=== PATIENT | male | born 1995 | race African-American/Black ===

== ENCOUNTER 2016-12-21 20:39 | Emergency (ER) | payer SELFPAY ==
[~2016-12-21] VITALS: Ht 190.5 cm; Wt 77.1 kg
[2016-12-21 22:30] VITALS: BP 118/86
[2016-12-21] MEDS ORDERED: IPRATRPIUM/ALBUTEROL 0.5/2.5MG 3 ML NEBU. NEB ONE (23:15)
--- NOTE | 2016-12-21 23:40 | PHYS DOC ---
Past Medical History Past Medical History: No Pertinent History Past Surgical History: No Surgical History Alcohol Use: None Drug Use: Marijuana Adult General Chief Complaint Chief Complaint: SHORTNESS OF BREATH HPI HPI Patient is a 21 year old male who presents with shortness of breath. The patient states he has 1 week history of dyspnea, feels short of breath when he takes a deep breath. He denies dyspnea with exertion, denies fevers/chills, cough, chest pain, lower extremity pain/swelling. He smokes marijuana. He is previously healthy. Seen at outside hospital earlier this week & treated for presumed bronchospasm & GERD. He has not filled inhaler/med prescription given at time of hospital discharge but doesn't feel better. He doesn't understand the diagnosis he was given at previous visit. Review of Systems Review of Systems Constitutional: Denies fever or chills HENT: Denies nasal congestion or sore throat Respiratory: Denies cough, reportsshortness of breath Cardiovascular: Denies chest pain or edema GI: Denies abdominal pain, nausea, vomiting Musculoskeletal: Denies back pain or joint pain Integument: Denies rash or skin lesions Neurologic: Denies headache, focal weakness or sensory changes Current Medications Current Medications Current Medications Medications (Trade) Dose Ordered Sig/Jami Start Time Stop Time Status Last Admin Dose Admin Albuterol/ Ipratropium (Duoneb) 3 ml 1X ONCE 12/21/16 23:15 12/21/16 23:16 DC 12/21/16 23:40 3 ML Allergies Allergies Allergies Coded Allergies Type Severity Reaction Last Updated Verified No Known Drug Allergies 12/21/14 No Physical Exam Physical Exam Constitutional: Well developed, well nourished, no acute distress, non-toxic appearance. HENT: Normocephalic, atraumatic, bilateral external ears normal, oropharynx moist, no tonsillar enlargement or exudate, nose normal. Eyes: conjunctiva normal, no discharge. Neck: supple, no stridor. Cardiovascular: RRR, no murmurs, no edema. Lungs & Thorax: LCTAB, breath sounds present in all lung santos, no wheezing, no respiratory distress. Abdomen: soft, nontender, nondistended. Skin: Warm, dry, no erythema, no rash. Back: No tenderness. Extremities: No tenderness, no edema. no calf tenderness or swelling. Neurologic: Alert and oriented X 3, no focal deficits noted. Psychologic: Affect normal, judgement normal, mood normal. Current Patient Data Vital Signs Vital Signs Date Time Temp Pulse Resp B/P (MAP) Pulse Ox O2 Delivery O2 Flow Rate FiO2 12/21/16 23:40 100 Room Air 12/21/16 22:30 99.1 50 20 99.1 EKG EKG [] Radiology/Procedures Radiology/Procedures Chest x-ray: 2 views, interpreted by me: No cardiomegaly, no infiltrate, no pneumothorax, no acute process. [] Course & Med Decision Making Course & Med Decision Making Pertinent Labs and Imaging studies reviewed. (See chart for details) The patient presents with shortness of breath. He has stable vitals including oxygen saturation 100% on room air, with good waveform. Normal lung exam. Gave duoneb, obtained CXR. No acute abnormality identified. Recommend filling prescriptions for inhaler & antacid, follow up with primary care & consider seeing Dr. Cohen in pulmonary clinic. Stop abusing marijuana. Come back for severe shortness of breath or chest pain, or any otherwise worsening condition. Discharged home in stable condition. [] Dragon Disclaimer Dragon Disclaimer This electronic medical record was generated, in whole or in part, using a voice recognition dictation system. Departure Departure Impression: Primary Impression: Dyspnea Additional Impression: Marijuana abuse Disposition: 01 HOME, SELF-CARE Condition: STABLE Referrals: NO PCP (PCP) SHIVA COHEN MD Patient Instructions: Shortness of Breath, [id number] Additional Instructions: You were seen in the emergency department today for shortness of breath. The tests here did not show serious cause of symptoms. Please continue to use inhaler as needed. Follow-up with a primary care doctor this week and make an appointment with Dr. Cohen in the pulmonary clinic. You may need further testing to be completed as an outpatient. Come back for severe shortness of breath or chest pain, or any otherwise worsening condition. Problem Qualifiers YANETH GONZALES MD Dec 21, 2016 23:40
--- NOTE | 2016-12-22 07:26 | RAD ---
Chest, 2 views, 12/21/2016: History: Shortness of breath The heart size is normal. The lungs are clear. There is no evidence of pleural fluid. IMPRESSION: No significant abnormality is detected.
== END 2016-12-22 00:24 | disposition home or self-care (01) ==
LOC: ER 20:39
DX: R06.00 Dyspnea, unspecified (principal); F12.10 Cannabis abuse, uncomplicated
CPT/HCPCS: 71020; 94640; 99284; J7620

== ENCOUNTER 2016-12-27 22:19 | Emergency (ER) | payer SELFPAY ==
[~2016-12-27] VITALS: Ht 190.5 cm; Wt 76.7 kg
[2016-12-27 22:30] VITALS: BP 122/75
[2016-12-27] MEDS ORDERED: IBUPROFEN 400 MG TABLET. PO ONE (23:00)
--- NOTE | 2016-12-27 23:19 | PHYS DOC ---
Past Medical History Past Medical History: Asthma, GERD Past Surgical History: No Surgical History Alcohol Use: None Drug Use: Marijuana Adult General Chief Complaint Chief Complaint: PLEURISY HPI HPI 21-year-old male presenting with pain in his chest that is sharp intermittent nonradiating and present for about 3 hours. He also has mild shortness of breath. The pain comes and goes. He denies syncope. Review of systems is negative for fevers chills nausea vomiting. He denies syncope or headache or abdominal pain. All other review of systems is negative unless otherwise noted in history of present illness. ED course: 21-year-old gentleman presenting to the emergency department with chest pain. EKG shows sinus rhythm with a regular rate. Possible LVH present. ST segments congruent. Not suggestive of ACS.Chest x-ray reviewed by myself shows no obvious infiltrate or pneumothorax present. No obvious acute cardiopulmonary process present. The patient was then discharged home in stable condition to follow up with their primary care physician over the next 2-3 days. They were to return if their symptoms worsened or if they were concerned for any reason. [id number] discharge instructions and return precautions were given. Patient's questions were answered to their satisfaction. Patient is comfortable plan. Review of Systems Review of Systems SEE ABOVE. Current Medications Current Medications Current Medications Medications (Trade) Dose Ordered Sig/Jami Start Time Stop Time Status Last Admin Dose Admin Ibuprofen (Motrin) 400 mg 1X ONCE 12/27/16 23:00 12/27/16 23:01 DC Allergies Allergies Allergies Coded Allergies Type Severity Reaction Last Updated Verified No Known Drug Allergies 12/21/14 No Physical Exam Physical Exam SEE ABOVE Constitutional: Well developed, well nourished, no acute distress, non-toxic appearance. [] HENT: Normocephalic, atraumatic, bilateral external ears normal, oropharynx moist, no oral exudates, nose normal. [] Eyes: PERRLA, EOMI, conjunctiva normal, no discharge. [] Neck: Normal range of motion, no tenderness, supple, no stridor. [] Cardiovascular:Heart rate regular rhythm, no murmur [] Lungs & Thorax: Bilateral breath sounds clear to auscultation [] Abdomen: Bowel sounds normal, soft, no tenderness, no masses, no pulsatile masses. [] Skin: Warm, dry, no erythema, no rash. [] Back: No tenderness, no CVA tenderness. [] Extremities: No tenderness, no cyanosis, no clubbing, ROM intact, no edema. [] Neurologic: Alert and oriented X 3, normal motor function, normal sensory function, no focal deficits noted. [] Psychologic: Affect normal, judgement normal, mood normal. [] Current Patient Data Vital Signs Vital Signs Date Time Temp Pulse Resp B/P (MAP) Pulse Ox O2 Delivery O2 Flow Rate FiO2 12/27/16 22:30 98.8 69 16 122/75 (91) 99 Room Air 98.8 EKG EKG [] Radiology/Procedures Radiology/Procedures [] Course & Med Decision Making Course & Med Decision Making Pertinent Labs and Imaging studies reviewed. (See chart for details) [] Dragon Disclaimer Dragon Disclaimer This electronic medical record was generated, in whole or in part, using a voice recognition dictation system. Departure Departure Impression: Primary Impression: Chest pain Disposition: HOME, SELF-CARE Condition: STABLE Referrals: NO PCP (PCP) ASHLEY FLOWERS MD Patient Instructions: Chest Pain (Nonspecific), Pleurisy RUSTY DALEY MD Dec 27, 2016 23:18
--- NOTE | 2016-12-28 08:13 | RAD ---
2 view CXR: Clinical indications: Chest pain and shortness of breath for 2 days.. Findings: No acute lung infiltrate or pleural effusion or pulmonary edema or lung mass or pneumothorax is seen. The heart size, pulmonary vasculature, mediastinum and both lisset are unremarkable. The osseous structures appear intact. Impression: No acute radiographic abnormality is seen.
--- NOTE | 2016-12-28 09:22 | EKG ---
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
== END 2016-12-27 23:53 | disposition home or self-care (01) ==
LOC: ER 22:19
DX: R07.9 Chest pain, unspecified (principal); J45.909 Unspecified asthma, uncomplicated; K21.9 Gastro-esophageal reflux disease without esophagitis; F12.10 Cannabis abuse, uncomplicated
CPT/HCPCS: 71020; 93005; 99284

== ENCOUNTER 2017-01-12 05:32 | Emergency (ER) | payer SELFPAY ==
[~2017-01-12] VITALS: Ht 190.5 cm; Wt 76.7 kg
[2017-01-12 05:42] VITALS: BP 125/86
[2017-01-12] MEDS ORDERED: FAMOTIDINE 20 MG TABLET. PO ONE (06:15)
[2017-01-12] MEDS ORDERED: LIDO:MAALOX:DONNATAL 1:1:1 15 ML SINGLE DOSE SWSW ONE (06:15)
--- NOTE | 2017-01-12 06:41 | RAD ---
Examination: Ultrasound abdomen limited HISTORY: History of epigastric pain COMPARISON: None available FINDINGS: The visualized pancreas, aorta, IVC appears patent. The echogenicity of the liver grossly appears unremarkable. The gallbladder is minimally distended. The gallbladder wall thickness measures 1.6 mm. The right kidney measures 10.2 cm in length. The common bile duct measures 4.7 mm in diameter. IMPRESSION: Unremarkable visualized exam. Electronically signed by: Sg Lima MD (01/12/2017 6:37 AM) [facility]
[2017-01-12] MEDS ORDERED: FAMO40TA57 PO (06:44)
--- NOTE | 2017-01-12 06:48 | PHYS DOC ---
Past Medical History Past Medical History: Asthma, GERD Past Surgical History: No Surgical History Alcohol Use: None Drug Use: Marijuana Adult General Chief Complaint Chief Complaint: ABDOMINAL PAIN HPI HPI 21-year-old male presenting to the emergency department today with a burning sensation in his epigastrium that is nonradiating intermittent. It is worse when he lays back and improved with sitting up. I saw him 2 weeks ago for similar thing he reports mild improvement with the antacid however the pain has come back. He's also tried natural remedies including honey. Review of systems is negative for fevers chills nausea vomiting diarrhea constipation blood in stool. All other review of systems is negative unless otherwise noted in history of present illness. ED course: 21-year-old male presenting to the emergency department with a burning epigastric abdominal pain. Vital signs unremarkable. Pertinent physical exam:Soft nontender abdomen without rebound tenderness or guarding present. Negative McBurneys point. Negative Flowers sign. No ecchymosis present.. Lungs are clear to auscultation bilaterally. Otherwise unremarkable exam. The patient was given Pepcid along with a GI cocktail and subsequent discharged home to follow-up with his PCP. The patient was then discharged home in stable condition to follow up with their primary care physician over the next 2-3 days. They were to return if their symptoms worsened or if they were concerned for any reason. [id number] discharge instructions and return precautions were given. Patient's questions were answered to their satisfaction. Patient is comfortable plan. Review of Systems Review of Systems SEE ABOVE. Current Medications Current Medications Current Medications Medications (Trade) Dose Ordered Sig/Jami Start Time Stop Time Status Last Admin Dose Admin Famotidine (Pepcid) 20 mg 1X ONCE 01/12/17 06:15 01/12/17 06:16 DC 01/12/17 06:30 20 MG Multi-Ingredient Mouthwash/Gargle (Gi Cocktail Single Dose) 15 ml 1X ONCE 01/12/17 06:15 01/12/17 06:16 DC 01/12/17 06:30 15 ML Allergies Allergies Allergies Coded Allergies Type Severity Reaction Last Updated Verified No Known Drug Allergies 12/21/14 No Physical Exam Physical Exam SEE ABOVE Constitutional: Well developed, well nourished, no acute distress, non-toxic appearance. [] HENT: Normocephalic, atraumatic, bilateral external ears normal, oropharynx moist, no oral exudates, nose normal. [] Eyes: PERRLA, EOMI, conjunctiva normal, no discharge. [] Neck: Normal range of motion, no tenderness, supple, no stridor. [] Cardiovascular:Heart rate regular rhythm, no murmur [] Lungs & Thorax: Bilateral breath sounds clear to auscultation [] Abdomen: Bowel sounds normal, soft, no tenderness, no masses, no pulsatile masses. [] Skin: Warm, dry, no erythema, no rash. [] Back: No tenderness, no CVA tenderness. [] Extremities: No tenderness, no cyanosis, no clubbing, ROM intact, no edema. [] Neurologic: Alert and oriented X 3, normal motor function, normal sensory function, no focal deficits noted. [] Psychologic: Affect normal, judgement normal, mood normal. [] Current Patient Data Vital Signs Vital Signs Date Time Temp Pulse Resp B/P (MAP) Pulse Ox O2 Delivery O2 Flow Rate FiO2 01/12/17 05:42 98.2 53 16 125/86 (99) 100 Room Air 98.2 EKG EKG [] Radiology/Procedures Radiology/Procedures [] Course & Med Decision Making Course & Med Decision Making Pertinent Labs and Imaging studies reviewed. (See chart for details) [] Dragon Disclaimer Dragon Disclaimer This electronic medical record was generated, in whole or in part, using a voice recognition dictation system. Departure Departure Impression: Primary Impression: Epigastric abdominal pain Disposition: HOME, SELF-CARE Condition: STABLE Referrals: NO PCP (PCP) Patient Instructions: Abdominal Pain Additional Instructions: Thank you for allowing us to participate in your care today. Followup with your primary care physician in 3 days if your symptoms do not improve. Call your Primary Doctor tomorrow and inform them of your visit today. If you do not have a primary care provider you can ask for a list of our primary care providers. Return to the emergency department you have any new or concerning findings. This should be evaluated by the primary care physician and any necessary consulting services for continued management within a few days after discharge. Return to emergency room if you have any new or concerning symptoms including but not limited to fever, chills, nausea, vomiting, intractable pain, any new rashes, chest pain, shortness of air, uncontrolled bleeding, difficulty breathing, and/or vision loss. Scripts Famotidine (PEPCID) 40 Mg Tablet 40 MG PO HS, #14 TAB 0 Refills Prov: RUSTY DALEY MD 01/12/17 RUSTY DALEY MD Jan 12, 2017 06:48
--- NOTE | 2017-01-12 07:10 | RAD ---
Chest, 2 views, 01/12/2017: History: Chest pain The heart size is normal. The lungs are clear. There is no evidence of pleural fluid. IMPRESSION: No acute cardiopulmonary abnormality is detected.
--- NOTE | 2017-01-12 07:48 | EKG ---
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
== END 2017-01-12 07:23 | disposition home or self-care (01) ==
LOC: ER 05:32
DX: R10.13 Epigastric pain (principal); J45.909 Unspecified asthma, uncomplicated; K21.9 Gastro-esophageal reflux disease without esophagitis; F12.10 Cannabis abuse, uncomplicated
CPT/HCPCS: 71020; 76705; 93005; 99284-25

== ENCOUNTER 2017-04-10 14:10 | Emergency (ER) | payer SELFPAY ==
[~2017-04-10] VITALS: Ht 190.5 cm; Wt 77.1 kg
[~2017-04-10 14:10] MED LIST: FAMO40TA57 PO
[2017-04-10 14:12] VITALS: BP 130/67
[2017-04-10] MEDS ORDERED: methylPREDNISolone SOD SUCC PF 125 MG/2 ML VIAL. IM ONE (14:30)
[2017-04-10] MEDS ORDERED: diphenhydrAMINE HCL 25 MG CAPSULE PO ONE (14:30)
[2017-04-10] MEDS ORDERED: TRIA15CR TP (14:34)
[2017-04-10] MEDS ORDERED: PRED20TA PO (14:34)
[2017-04-10] MEDS ORDERED: SULF1TAB24 PO (14:34)
--- NOTE | 2017-04-10 14:34 | PHYS DOC ---
Past Medical History Past Medical History: Asthma, GERD Additional Past Medical Histor: ECZEMA Past Surgical History: No Surgical History Alcohol Use: Occasionally Drug Use: Marijuana Adult General Chief Complaint Chief Complaint: SKIN RASH/ABSCESS [facility] HPI Patient is a 21 year old male with a history of eczema presents the ED complaining of rash 2 weeks. Patient states the rash has been getting worse. States this is his worst eczema outbreak. States he has had some skin that has broken open. Has not had to use steroid creams since childhood. No new soaps lotions or detergents. Denies fever, flulike symptoms, recent travel to foreign countries, chest pain, shortness of breath, conjunctivitis, weakness or dizziness. Review of Systems Review of Systems Constitutional: Denies fever or chills [] Eyes: Denies change in visual acuity, redness, or eye pain [] HENT: Denies nasal congestion or sore throat [] Respiratory: Denies cough or shortness of breath [] Cardiovascular: No additional information not addressed in HPI [] GI: Denies abdominal pain, nausea, vomiting, bloody stools or diarrhea [] : Denies dysuria or hematuria [] Musculoskeletal: Denies back pain or joint pain [] Integument: Complains of rash. Denies skin lesions [] Neurologic: Denies headache, focal weakness or sensory changes [] Endocrine: Denies polyuria or polydipsia [] All other systems were reviewed and found to be within normal limits, except as documented in this note. Current Medications Current Medications Current Medications Medications (Trade) Dose Ordered Sig/Jami Start Time Stop Time Status Last Admin Dose Admin Diphenhydramine HCl (Benadryl) 25 mg 1X ONCE 04/10/17 14:30 04/10/17 14:31 DC 04/10/17 14:35 25 MG Methylprednisolone Sodium Succinate (SOLU-Medrol 125MG VIAL) 125 mg 1X ONCE 04/10/17 14:30 04/10/17 14:31 DC 04/10/17 14:34 125 MG Allergies Allergies Allergies Coded Allergies Type Severity Reaction Last Updated Verified No Known Drug Allergies 12/21/14 No Physical Exam Physical Exam Constitutional: Well developed, well nourished, no acute distress, non-toxic appearance. [] HENT: Normocephalic, atraumatic, bilateral external ears normal, oropharynx moist, no oral exudates, nose normal. [] Eyes: PERRLA, EOMI, conjunctiva normal, no discharge. [] Neck: Normal range of motion, no tenderness, supple, no stridor. [] Cardiovascular:Heart rate regular rhythm, no murmur [] Lungs & Thorax: Bilateral breath sounds clear to auscultation [] Abdomen: Bowel sounds normal, soft, no tenderness, no masses, no pulsatile masses. [] Skin: Warm, dry, PATCHES OF ERYTHEMATOUS, SKIN FLAKING, INFLAMED RASH TO BILATERAL ANTECUBITAL FOSSAS AND LOWER LEGS CONSISTENT WITH ECZEMA. EXCORATIONS TO FOREARMS.[] Back: No tenderness, no CVA tenderness. [] Extremities: No tenderness, no cyanosis, no clubbing, ROM intact, no edema. [] Neurologic: Alert and oriented X 3, normal motor function, normal sensory function, no focal deficits noted. [] Psychologic: Affect normal, judgement normal, mood normal. [] Current Patient Data Vital Signs Vital Signs Date Time Temp Pulse Resp B/P (MAP) Pulse Ox O2 Delivery O2 Flow Rate FiO2 04/10/17 14:12 97.7 60 18 98 Room Air 97.7 EKG EKG [] Radiology/Procedures Radiology/Procedures [] Course & Med Decision Making Course & Med Decision Making Pertinent Labs and Imaging studies reviewed. (See chart for details) []Exam and history consistent with eczema. No rash to palms or other systemic symptoms. Patient given steroid injection and Benadryl in ED. Patient states he is itching less and feeling much better. Patient will be prescribed a short course of oral steroids, given triamcinolone, and bactrim to prevent secondary infection. Discussed symptomatic treatment [id number] including Benadryl and Aquaphor. Provided contact information education for dermatology follow-up with Dr. Fraga. Discussed reasons to return to the ED. Patient understands and agrees with plan. Dragon Disclaimer Dragon Disclaimer This electronic medical record was generated, in whole or in part, using a voice recognition dictation system. Departure Departure Impression: Primary Impression: Eczema Disposition: 01 HOME, SELF-CARE Condition: STABLE Referrals: NO PCP (PCP) SHAHEEN FRAGA MD Patient Instructions: Eczema Scripts Triamcinolone Acetonide (TRIAMCINOLONE ACETONIDE 0.5% CREAM) 15 Gm Cream..g. 1 DIAMOND TP BID, #30 GM Prov: SHANTELLE HUNT 04/10/17 Sulfamethoxazole/Trimethoprim (BACTRIM DS TABLET) 1 Each Tablet 1 TAB PO BID, #20 TAB Prov: SHANTELLE HUNT 04/10/17 Prednisone (PREDNISONE) 20 Mg Tablet 2 TAB PO DAILY for 7 Days, #14 TAB Prov: SHANTELLE HUNT 04/10/17 SHANTELLE HUNT Apr 10, 2017 14:34
== END 2017-04-10 14:44 | disposition home or self-care (01) ==
LOC: ER 14:10
DX: L30.9 Dermatitis, unspecified (principal); J45.909 Unspecified asthma, uncomplicated; K21.9 Gastro-esophageal reflux disease without esophagitis
CPT/HCPCS: 96372; 99283; J2930; Q0163

== ENCOUNTER 2018-04-22 18:03 | Emergency (ER) | payer SELFPAY ==
[~2018-04-22] VITALS: Ht 190.5 cm; Wt 72.6 kg
[~2018-04-22 18:03] MED LIST changes: +PRED20TA PO; +SULF1TAB24 PO; +TRIA15CR TP
[2018-04-22 18:35] LABS: BILIRUBIN,URINE NEGATIVE (NEG); CLARITY,URINE CLEAR; COLOR,URINE YELLOW; NITRITE,URINE NEGATIVE (NEG); PH,URINE 5.5; PROTEIN,URINE NEGATIVE (NEG-TRACE); UROBILINOGEN,URINE 0.2 mg/dL (0.2 mg/dL)
[2018-04-22 18:41] LABS: BARBITURATES NEG (NEG); BENZODIAZEPINES NEG (NEG); CANNABINOIDS POS (NEG); COCAINE NEG (NEG); METHADONE NEG (NEG); OPIATES NEG (NEG); PHENCYCLIDINE NEG (NEG)
--- NOTE | 2018-04-22 18:41 | PHYS DOC ---
Past Medical History Past Medical History: Asthma, GERD Additional Past Medical Histor: ECZEMA Past Surgical History: No Surgical History Smoking: Cigarettes (The patient is a nonsmoker.) Alcohol Use: Occasionally Drug Use: Marijuana Adult General Chief Complaint Chief Complaint: [facility] HPI Patient is a 22-year-old -[place] male who presents to the emergency department for evaluation of multiple medical complaints. He states that for the past several days, he has had multiple episodes of very brief chest discomfort, which pops up in sporadic areas on his chest, only lasting a few seconds. He does not have any pleuritic pain or shortness of breath. He states he has had multiple episodes of feeling lightheaded and generally weak, like he is going to pass out. He denies any sense of rotation or tinnitus or hearing changes. He has not had any numbness or weakness or vision changes, denies any headache, nausea or vomiting. He states he has chronic epigastric pain for at least over a year, and he does admit to daily marijuana use but denies any alcohol use. Other than the stated above, there are no alleviating or exacerbating factors to the patient's symptoms. Review of Systems Review of Systems Constitutional: Denies fever or chills [] Eyes: Denies change in visual acuity, redness, or eye pain [] HENT: Denies nasal congestion or sore throat [] Respiratory: Denies cough or shortness of breath [] Cardiovascular: No additional information not addressed in HPI [] GI: Denies abdominal pain, nausea, vomiting, bloody stools or diarrhea [] : Denies dysuria or hematuria [] Musculoskeletal: Denies back pain or joint pain [] Integument: Denies rash or skin lesions [] Neurologic: Denies headache, focal weakness or sensory changes [] Endocrine: Denies polyuria or polydipsia [] All other systems were reviewed and found to be within normal limits, except as documented in this note. Current Medications Current Medications Current Medications Medications (Trade) Dose Ordered Sig/Jami Start Time Stop Time Status Last Admin Dose Admin Sodium Chloride 1,000 ml @ 1,000 mls/hr Q1H 04/22/18 19:00 04/22/18 19:59 04/22/18 19:00 1,000 MLS/HR Allergies Allergies Allergies Coded Allergies Type Severity Reaction Last Updated Verified No Known Drug Allergies 12/21/14 No Physical Exam Physical Exam PHYSICAL EXAM: CONSTITUTIONAL: Well developed, well nourished HEAD: normocephalic, atraumatic EENT: PERRL, EOMI. Conjunctivae normal color, sclerae non-icteric; moist mucous membranes. NECK: Supple, non-tender; no meningismus. LUNGS: Lungs CTA, breathing even and unlabored. Normal air movement. HEART: Regular rate and rhythm, no murmur CHEST: No deformity; non-tender ABDOMEN: The abdomen is soft, and non-tender, no masses or bruits. EXTREM: Normal ROM; no deformity, no calf tenderness. Normal pulses palpable in all extremities. There is no pedal edema. SKIN: No rash; no diaphoresis NEURO: Alert; normal speech and cognition; CN's grossly intact; strength grossly intact without focal deficit. BACK: No CVA TTP. Current Patient Data Vital Signs Vital Signs Date Time Temp Pulse Resp B/P (MAP) Pulse Ox O2 Delivery O2 Flow Rate FiO2 04/22/18 18:20 98.2 64 18 137/76 (96) 99 Room Air 98.2 Lab Values Laboratory Tests Test 04/22/18 18:12 04/22/18 18:37 Urine Collection Type Unknown Urine Color Yellow Urine Clarity Clear Urine pH 5.5 Urine Specific Sheldahl 1.020 Urine Protein Negative mg/dL (NEG-TRACE) Urine Glucose (UA) Negative mg/dL (NEG) Urine Ketones (Stick) Negative mg/dL (NEG) Urine Blood Negative (NEG) Urine Nitrite Negative (NEG) Urine Bilirubin Negative (NEG) Urine Urobilinogen Dipstick 0.2 mg/dL (0.2 mg/dL) Urine Leukocyte Esterase Negative (NEG) Urine RBC Occ /HPF (0-2) Urine WBC 0 /HPF (0-4) Urine Squamous Epithelial Cells Occ /LPF Urine Bacteria 0 /HPF (0-FEW) Urine Hyaline Casts Few /HPF Urine Mucus Mod /LPF Urine Opiates Screen Neg (NEG) Urine Methadone Screen Neg (NEG) Urine Barbiturates Neg (NEG) Urine Phencyclidine Screen Neg (NEG) Urine Amphetamine/Methamphetamine Neg (NEG) Urine Benzodiazepines Screen Neg (NEG) Urine Cocaine Screen Neg (NEG) Urine Cannabinoids Screen Pos (NEG) Urine Ethyl Alcohol Neg (NEG) White Blood Count 7.4 x10^3/uL (4.0-11.0) Red Blood Count 4.70 x10^6/uL (4.30-5.70) Hemoglobin 14.7 g/dL (13.0-17.5) Hematocrit 43.4 % (39.0-53.0) Mean Corpuscular Volume 92 fL (79-100) Mean Corpuscular Hemoglobin 31 pg (25-35) Mean Corpuscular Hemoglobin Concent 34 g/dL (31-37) Red Cell Distribution Width 12.4 % (11.5-14.5) Platelet Count 195 x10^3/uL (140-400) Neutrophils (%) (Auto) 59 % (31-73) Lymphocytes (%) (Auto) 25 % (24-48) Monocytes (%) (Auto) 11 % (0-9) H Eosinophils (%) (Auto) 4 % (0-3) H Basophils (%) (Auto) 1 % (0-3) Neutrophils # (Auto) 4.4 x10^3uL (1.8-7.7) Lymphocytes # (Auto) 1.9 x10^3/uL (1.0-4.8) Monocytes # (Auto) 0.8 x10^3/uL (0.0-1.1) Eosinophils # (Auto) 0.3 x10^3/uL (0.0-0.7) Basophils # (Auto) 0.1 x10^3/uL (0.0-0.2) D-Dimer (Latricia) < 0.27 ug/mlFEU Sodium Level 141 mmol/L (136-145) Potassium Level 3.9 mmol/L (3.5-5.1) Chloride Level 103 mmol/L (98-107) Carbon Dioxide Level 31 mmol/L (21-32) Anion Gap 7 (6-14) Blood Urea Nitrogen 18 mg/dL (8-26) Creatinine 1.1 mg/dL (0.7-1.3) Estimated GFR (Cockcroft-Gault) 102.2 BUN/Creatinine Ratio 16 (6-20) Glucose Level 73 mg/dL (70-99) Calcium Level 9.6 mg/dL (8.5-10.1) Magnesium Level 1.9 mg/dL (1.8-2.4) Total Bilirubin 0.7 mg/dL (0.2-1.0) Aspartate Amino Transferase (AST) 18 U/L (15-37) Alanine Aminotransferase (ALT) 28 U/L (16-63) Alkaline Phosphatase 69 U/L (46-116) Troponin I Quantitative < 0.017 ng/mL (0.000-0.055) Total Protein 8.4 g/dL (6.4-8.2) H Albumin 4.5 g/dL (3.4-5.0) Albumin/Globulin Ratio 1.2 (1.0-1.7) Lipase 104 U/L (73-393) Thyroid Stimulating Hormone (TSH) 0.949 uIU/mL (0.358-3.74) Free Thyroxine 0.89 ng/dL (0.76-1.46) Laboratory Tests 04/22/18 18:37 Laboratory Tests 04/22/18 18:37 EKG EKG [Normal sinus rhythm at a rate of 53 bpm, normal axis, incomplete right bundle- branch block with otherwise normal intervals. There are no acute ischemic ST/T changes. Borderline criteria for LVH are present.] Radiology/Procedures Radiology/Procedures [ER physician preliminary chest x-ray interpretation: No acute disease.] Course & Med Decision Making Course & Med Decision Making Pertinent Labs and Imaging studies reviewed. (See chart for details) [7:50 PM:Patient remains stable. I discussed test results, the need for close follow-up, and return precautions. The patient has an appointment with a new PCP this coming Thursday. I also encouraged him to discontinue marijuana use.] Dragon Disclaimer Dragon Disclaimer This electronic medical record was generated, in whole or in part, using a voice recognition dictation system. Departure Departure Impression: Primary Impression: Lightheadedness Disposition: 01 HOME, SELF-CARE Condition: STABLE Referrals: NO PCP (PCP) Patient Instructions: Dizziness, Marijuana Abuse-Brief CONNIE HOGAN MD Apr 22, 2018 18:41
[2018-04-22 18:44] LABS: AMPHETAMINE/METHAMPHETAMINE NEG (NEG)
[2018-04-22 18:48] LABS: BASO # 0.1 x10^3/uL (0.0-0.2); BASO % 1 % (0-3); EOS # 0.3 x10^3/uL (0.0-0.7); EOS % 4 % (0-3); HEMATOCRIT 43.4 % (39.0-53.0); HEMOGLOBIN 14.7 g/dL (13.0-17.5); LYMPH # 1.9 x10^3/uL (1.0-4.8); LYMPH % 25 % (24-48); MEAN CORPUSCULAR HEMOGLOBIN 31 pg (25-35); MEAN CORPUSCULAR HGB CONC 34 g/dL (31-37); MEAN CORPUSCULAR VOLUME 92 fL (79-100); MONO # 0.8 x10^3/uL (0.0-1.1); MONO % 11 % (0-9); NEUT # 4.4 x10^3uL (1.8-7.7); NEUT % 59 % (31-73); PLATELET COUNT 195 x10^3/uL (140-400); RED CELL DISTRIBUTION WIDTH 12.4 % (11.5-14.5); WHITE BLOOD COUNT 7.4 x10^3/uL (4.0-11.0)
[2018-04-22 18:56] LABS: CALCIUM 9.6 mg/dL (8.5-10.1); CREATININE 1.1 mg/dL (0.7-1.3); GFR 102.2; POTASSIUM 3.9 mmol/L (3.5-5.1)
[2018-04-22 18:57] LABS: HYALINE CASTS, URINE FEW /HPF; SQUAMOUS EPITHELIAL CELL,UR OCC /LPF
[2018-04-22 18:58] LABS: BACTERIA,URINE 0 /HPF (0-FEW); RBC,URINE OCC /HPF (0-2); WBC,URINE 0 /HPF (0-4)
[2018-04-22] MEDS ORDERED: IV NORMAL SALINE 1000ML BAG 1,000 ML IV SCH (19:00)
--- NOTE | 2018-04-22 19:04 | EKG ---
[facility] [address] [place] [address] Test Date: 2018-04-22 Test Time: 18:41:42 Pat Name: CHRISTOPHER SORIA Department: Room: Gender: M [employer]en Box Maker: : 1995 Requested By: CONNIE HOGAN Order Number: [id number] Reading MD: Lance Bangura Measurements Intervals Maxwell Rate: 52 P: 51 WY: 136 QRS: 61 QRSD: 100 T: 24 QT: 412 QTc: 388 Interpretive Statements SINUS RHYTHM INCOMPLETE RIGHT BUNDLE BRANCH BLOCK MODERATE AMPLITUDE CRITERIA FOR LVH NON SPECIFIC ST-T ABNORMALITY (ELEVATION) BORDERLINE ECG Electronically Signed On 04-26-2018 10:55:02 ADJUNCT [employer] HISTORY INSTRUCTOR by Lance Bangura
--- NOTE | 2018-04-22 19:07 | RAD ---
PA and lateral views of the chest. Comparison: Chest radiograph dated 01/12/2017. Indication: SOB, epigastric pain h/o asthma and smoking Findings: Normal lung volume. No focal airspace disease. Normal pulmonary vasculature. No pleural effusion. No pneumothorax. The cardiomediastinal silhouette is normal in appearance. The great vessels are normal. No acute osseous abnormality. Impression: 1. No acute cardiopulmonary process. Electronically signed by: Hugh Reis MD (04/22/2018 7:03 PM) [facility]
[2018-04-22 19:09] LABS: FREE T4 0.89 ng/dL (0.76-1.46); THYROID STIM HORMONE (TSH) 0.949 uIU/mL (0.358-3.74)
[2018-04-22 19:11] LABS: ALBUMIN 4.5 g/dL (3.4-5.0); ALBUMIN/GLOBULIN RATIO 1.2 (1.0-1.7); MAGNESIUM 1.9 mg/dL (1.8-2.4); TOTAL BILIRUBIN 0.7 mg/dL (0.2-1.0); TOTAL PROTEIN 8.4 g/dL (6.4-8.2)
[2018-04-22 19:50] VITALS: BP 107/67
== END 2018-04-22 20:00 | disposition home or self-care (01) ==
LOC: ER 18:03
DX: R42 Dizziness and giddiness (principal); R07.89 Other chest pain; R10.13 Epigastric pain; G89.29 Other chronic pain; R53.1 Weakness; F12.20 Cannabis dependence, uncomplicated; K21.9 Gastro-esophageal reflux disease without esophagitis; J45.909 Unspecified asthma, uncomplicated
CPT/HCPCS: 36415; 71046; 80053; 80307; 81001; 83690; 83735; 84439; 84443; 84484; 85025; 85379; 93005; 96360; 99284; J7030

== ENCOUNTER 2018-04-26 21:38 | Emergency (ER) | payer SELFPAY ==
[~2018-04-26] VITALS: Ht 190.5 cm; Wt 71.7 kg
[2018-04-26 21:40] VITALS: BP 144/78
--- NOTE | 2018-04-26 21:55 | PHYS DOC ---
Past Medical History Past Medical History: GERD Additional Past Medical Histor: ECZEMA Past Surgical History: No Surgical History Alcohol Use: None Drug Use: Marijuana Adult General Chief Complaint Chief Complaint: NAUSEA/VOMITING/DIARRHA HPI HPI 22-year-old male presents to ER via EMS from his workplace with complaints of dizziness and nausea. Patient was seen in this ER on 04/22/18. Patient reports he has been under increased stress with girlfriend being . Patient states he wonders if he has anxiety as his mother has severe anxiety. Patient states he was at work when he started feeling dizzy and became nauseous denying any vomiting episodes. On arrival to ER patient did vomit small amount. Patient on arrival had rapid respirations with redirection he was able to slow his breathing become less anxious. Patient denies any depression or suicidal ideations. Review of Systems Review of Systems Constitutional: Denies fever or chills [] Eyes: Denies change in visual acuity, redness, or eye pain [] HENT: Denies nasal congestion or sore throat [] Respiratory: Denies cough or shortness of breath [] Cardiovascular: No additional information not addressed in HPI [] GI: Denies abdominal pain, nausea, vomiting, bloody stools or diarrhea [] : Denies dysuria or hematuria [] Musculoskeletal: Denies back pain or joint pain [] Integument: Denies rash or skin lesions [] Neurologic: Denies headache, focal weakness or sensory changes [] Endocrine: Denies polyuria or polydipsia [] All other systems were reviewed and found to be within normal limits, except as documented in this note. Current Medications Current Medications Current Medications Medications (Trade) Dose Ordered Sig/[facility] Start Time Stop Time Status Last Admin Dose Admin Ondansetron HCl (Zofran Odt) 4 mg 1X ONCE 04/26/18 22:15 04/26/18 22:16 DC 04/26/18 22:05 4 MG Allergies Allergies Allergies Coded Allergies Type Severity Reaction Last Updated Verified No Known Drug Allergies 12/21/14 No Physical Exam Physical Exam Constitutional: Well developed, well nourished, no acute distress, non-toxic appearance. [] HENT: Normocephalic, atraumatic, bilateral external ears normal, oropharynx moist, no oral exudates, nose normal. [] Eyes: PERRLA, EOMI, conjunctiva normal, no discharge. [] Neck: Normal range of motion, no tenderness, supple, no stridor. [] Cardiovascular:Heart rate regular rhythm, no murmur [] Lungs & Thorax: Bilateral breath sounds clear to auscultation [] Abdomen: Bowel sounds normal, soft, no tenderness, no masses, no pulsatile masses. [] Skin: Warm, dry, no erythema, no rash. [] Back: No tenderness, no CVA tenderness. [] Extremities: No tenderness, no cyanosis, no clubbing, ROM intact, no edema. [] Neurologic: Alert and oriented X 3, normal motor function, normal sensory function, no focal deficits noted. [] Psychologic: Affect normal, judgement normal, mood normal. [] Current Patient Data Vital Signs Vital Signs Date Time Temp Pulse Resp B/P (MAP) Pulse Ox O2 Delivery O2 Flow Rate FiO2 04/26/18 21:40 98.0 64 18 144/78 (100) 100 Room Air 98.0 EKG EKG [] Radiology/Procedures Radiology/Procedures [] Course & Med Decision Making Course & Med Decision Making 2221: Orthostatic BP/HR obtained and are stable. Upon entering room found pt talking on cell phone in no visible distress. He remains nontoxic in appearance. VS stable with 99% O2 sat on RA and HR 68. Discussed sxs with pt which may be r/t anxiety as pt reports increased stress with 1st child being expected. Pt reports he has appt with PCP on 04/28. Discussed ER visit from which he presented with similar sxs and had labs/EKG done. Discussed PO challenge and discharge plan. Manoj Disclaimer Manoj Disclaimer This electronic medical record was generated, in whole or in part, using a voice recognition dictation system. Departure Departure Impression: Primary Impression: Nausea & vomiting Additional Impressions: Anxiety Dizziness Disposition: 01 HOME, SELF-CARE Condition: STABLE Referrals: NO PCP (PCP) Patient Instructions: Anxiety and Panic Attacks, Dizziness, Nausea and Vomiting Additional Instructions: Keep your scheduled appointment on 04/28 with your primary care physician Drink plenty of fluids. Avoid marijuana use. You were breathing fast when you arrived to the Emergency Department which hyperventilating can cause dizziness/shortness of air and make you feel nauseated. Slow your breathing pattern down when you start to have symptoms to see if this improves your symptoms. Scripts Ondansetron (ONDANSETRON ODT) 4 Mg Tab.rapdis 1 TAB PO PRN Q6-8HRS PRN for NAUSEA, #8 TAB 0 Refills Prov: LAURA PADILLA APRN 04/26/18 Problem Qualifiers LAURA PADILLA APRN Apr 26, 2018 21:55
[2018-04-26] MEDS ORDERED: ONDANSETRON ODT 4 MG TAB.RAPDIS. PO ONE (22:15)
[2018-04-26] MEDS ORDERED: ONDA4TAB12 PO (22:42)
== END 2018-04-26 22:45 | disposition home or self-care (01) ==
LOC: ER 21:38
DX: R11.2 Nausea with vomiting, unspecified (principal); F41.9 Anxiety disorder, unspecified; R42 Dizziness and giddiness; K21.9 Gastro-esophageal reflux disease without esophagitis
CPT/HCPCS: 99283; Q0162